=== PATIENT | female | born 1935 | race Two or more races ===

== ENCOUNTER → 2022-05-04 | Emergency (ER) | payer MEDICARE, MEDICAID ==
[~2022-05-04] VITALS: Ht 154.9 cm; Wt 81.6 kg
[2022-05-04 12:26] VITALS: BP 124/45
== END | disposition left against medical advice (07) ==
LOC: ER 12:23
DX: S00.81XA Abrasion of other part of head, initial encounter (principal); Z53.21 Procedure and treatment not carried out due to patient leaving prior to being seen by health care provider; X58.XXXA Exposure to other specified factors, initial encounter; Y93.89 Activity, other specified; Y92.89 Other specified places as the place of occurrence of the external cause; Y99.8 Other external cause status